=== PATIENT | male | born 1955 | race Caucasian/White ===

== ENCOUNTER 2016-11-22 04:43 | Inpatient (IN) | payer OTHER ==
[~2016-11-22] VITALS: Ht 172.7 cm; Wt 86.2 kg
[~2016-11-22 04:43] MED LIST: DIVA500T2 PO; ESCI10TA PO; ZOLP10TA2 PO
--- NOTE | 2016-11-22 04:50 | NUR ---
PT SHAWANDA, PT WAS FOUND AT HIS HOUSE ACTING VERY ERRATIC PER EMS, PT STATES HE SMOKED SOME WEED AND THINKS IT IS LACED WITH SOMETHING, PT ON MONITOR, MD AT BEDSIDE, PT DENIES SI OR HI, WILL CONTINUE TO MONITOR.
[2016-11-22] MEDS ORDERED: IV NS 0.9% 1,000 ML BAG IV ONE ×2 (05:00→06:30)
[2016-11-22] MEDS ORDERED: OLANZAPINE 10 MG VIAL IM ONE ×2 (05:00)
[2016-11-22] MEDS ORDERED: LORAZEPAM INJ 2 MG/ML VIAL IM ONE (05:00)
[2016-11-22] MEDS ORDERED: WATER FOR INJECTION,STERILE 10 ML ONE (05:00)
[2016-11-22] MEDS ORDERED: LORAZEPAM INJ 2 MG/ML VIAL ONE ×4 (05:01→16:56)
[2016-11-22 05:22] LABS: BASOPHILS # (AUTO) 0.1 /CMM (0.0-0.2); BASOPHILS % (AUTO) 0.4 % (0.0-2.0); EOSINOPHILS % (AUTO) 0.1 % (0.0-6.0); HEMATOCRIT 41 % (39-51); HEMOGLOBIN 14.3 g/dL (13.5-17.5); LYMPHOCYTES # (AUTO) 1.2 /CMM (0.8-4.8); MEAN CORPUSCULAR HEMOGLOBIN 33 PG (26.0-33.0); MEAN CORPUSCULAR HGB CONC 35 g/dl (31.0-36.0); MEAN CORPUSCULAR VOLUME 93 fL (80-96); MONOCYTES # (AUTO) 1.2 /CMM (0.1-1.30); MONOCYTES % (AUTO) 5.2 % (2.0-12.0); NEUTROPHILS # (AUTO) 21.4 /CMM (1.8-8.9); NEUTROPHILS % (AUTO) 89.3 % (43.0-81.0); PLATELET COUNT (AUTO) 189 /CMM (150-450); RDW COEFFICIENT OF VARIATION 12.9 (11.5-15.0)
[2016-11-22] MEDS ORDERED: Magnesium 1 GM/2 ML VIAL IV ONE (05:30)
[2016-11-22] MEDS ORDERED: diphenhydrAMINE HCL 50 MG/ML VIAL ONE (05:36)
[2016-11-22] MEDS ORDERED: Magnesium 1GM/D5W 100ML PREMIX 200 ML IV ONE (05:36)
[2016-11-22 05:38] LABS: VALPROIC ACID 4 ug/mL (50-100)
[2016-11-22 05:43] LABS: ALANINE AMINOTRANSFERASE 56 U/L (12-78); ALBUMIN 4.9 g/dL (3.4-5.0); ALCOHOL, BLOOD < 3 mg/dL (0-0); ALKALINE PHOSPHATASE 76 U/L (46-116); ASPARTATE AMINOTRANSFERASE 80 U/L (15-37); BILIRUBIN,DIRECT 0.3 mg/dL (0.0-0.2); BILIRUBIN,TOTAL 1.2 mg/dL (0.2-1.0); CALCIUM, SERUM 8.7 mg/dL (8.5-10.1); CARBON DIOXIDE 11 mmol/L (21-32); CHLORIDE 95 mmol/L (98-107); CREATININE 3.9 mg/dL (0.6-1.3); GLUCOSE 79 mg/dL (74-106); POTASSIUM 4.6 mmol/L (3.5-5.1); SALICYLATE 5.5 mg/dL (2.8-20.0); SODIUM SERUM 138 mmol/L (136-145)
[2016-11-22 05:47] LABS: ACETAMINOPHEN 0 ug/ml (10-30); UREA NITROGEN, BLOOD 108 mg/dL (7-18)
[2016-11-22 05:59] LABS: INR 1.06 (0.87-1.13); PROTHROMBIN TIME 11.4 SECS (9.5-12.7)
[2016-11-22] MEDS ORDERED: LORAZEPAM INJ 2 MG/ML VIAL IV ONE ×2 (06:00→06:30)
--- NOTE | 2016-11-22 06:00 | NUR ---
PT STILL ACTING ERRATIC, MD DILL MADE AWARE AND 2MG OF ATIVAN IV WAS ORDERED AND GIVEN WILL CONTINUE TO MONITOR.
[2016-11-22 06:28] LABS: CREATINE KINASE MB 31.6 ng/mL (0-3.6)
[2016-11-22] MEDS ORDERED: diphenhydrAMINE HCL 50 MG/ML VIAL IV ONE (06:30)
[2016-11-22] MEDS ORDERED: METOPROLOL TARTRATE 25 MG TABLET PO ONE (06:30)
--- NOTE | 2016-11-22 06:38 | NUR ---
DARLINE DISCONTINUED BY MD DILL REQUEST, PT IN BED SLEEPING ON MONITOR, VSS WILL CONTINUE TO MONITOR
[2016-11-22 06:46] LABS: APPEARANCE,URINE CLEAR (CLEAR); BILIRUBIN,URINE 2+ (NEGATIVE); BLOOD, URINE 2+ Ery/uL (NEGATIVE); COLOR,URINE YELLOW (YELLOW); KETONES,URINE TRACE (NEGATIVE); LEUKOCYTE ESTERASE ,URINE NEGATIVE (NEGATIVE); NITRITE, URINE NEGATIVE (NEGATIVE); PROTEIN,URINE NEGATIVE (NEGATIVE); UGLUCOSE NEGATIVE (NEGATIVE); UROBILINOGEN,URINE 0.2 EU/dL (0.2)
[2016-11-22 07:12] LABS: BACTERIA,URINE None seen /HPF (None Seen); MUCUS,URINE Rare /LPF (None Seen); SQUAMOUS EPITHELIAL CELL,UR Few /HPF (None Seen)
--- NOTE | 2016-11-22 07:36 | NUR ---
PAGED DR. KANG FOR ADMISSION
[2016-11-22 08:03] LABS: BAND % (MANUAL) 15 % (0.0-5.0); LYMPHOCYTES % (MANUAL) 8 % (16-48); MONOCYTES % (MANUAL) 3 % (0-11.0); NEUTROPHILS % (MANUAL) 74 (42-76)
--- NOTE | 2016-11-22 08:30 | NUR ---
REPORT GIVEN TO ROX CASTLE FOR ROOM [phone]
[2016-11-22 09:00] VITALS: BP 103/60
[2016-11-22] MEDS ORDERED: LORAZEPAM INJ 2 MG/ML VIAL IV PRN ×2 (09:00→19:00)
[2016-11-22] MEDS: ESCITALOPRAM OXALATE (10 MG) 10 MG TABLET PO SCH (09:00)
[2016-11-22] MEDS ORDERED: ONDANSETRON HCL/PF 4 MG/2 ML VIAL IVP PRN (09:00)
[2016-11-22] MEDS ORDERED: MAGNESIUM HYDROXIDE 30 ML UDC PO PRN (09:00)
[2016-11-22] MEDS ORDERED: MAG HYDROX/AL HYDROX/SIMETH 30 ML UDC PO PRN (09:00)
--- NOTE | 2016-11-22 09:20 | NUR ---
MS RN OPENING RECEIVED PATIENT RESPONDING TO PAINFUL STIMULI ONLY. INCOMPREHENSIBLE SOUNDS. VS STABLE. O2 STABLE. IV INTACT PATENT. BED ALARM ON. PATIENT APPEARS STABLE NO S/S DIFFICULTY BREATHING, SOB, OR PAIN. HOWEVER PATIENT IS VERY LETHARGIC. MD AWARE. NEEDS IN REACH, BED LOWERED AND LOCKED, RAILS UPX3 FOR SAFETY AND WILL ROUND Q2H OR LESS PER NEEDS. BED ALARM ON.
[2016-11-22] MEDS: IV NS 0.9% 1,000 ML IV PRN ×2 (11:26→17:00)
--- NOTE | 2016-11-22 11:58 | NUR ---
MS RN NOTES SHOWED DR KANG PATIENT SKIN. PER MD ORDER WOUND EVAL AND ID CONSULT; DR ANDREWS
--- NOTE | 2016-11-22 12:59 | NUR ---
MS RN NOTES NOTIFIED RITA FRANKLIN OF ARF DIAGNOSIS
--- NOTE | 2016-11-22 12:59 | NUR ---
WOUND CARE CONSULT RECEIVED WOUND CONSULT FOR PATIENT FOR POSSIBLE SCABIES. SENIOR ERP CONSULTANT WILL DEFER TO MD AT THIS TIME. DISCUSSED WITH NURSING STAFF.
--- NOTE | 2016-11-22 13:00 | NUR ---
MS RN NOTES SPOKE WITH [facility] INFECTION CONTROL TO NOTIFY OF R/O POSSIBLE SCABIES. HE WILL BE AROUND IN ANOTHER HOUR OR SO TO COMPLETE A SKIN SCRAPING
--- NOTE | 2016-11-22 13:00 | NUR ---
MS RN NOTES HOLDING LEXAPRO; PATIENT IS LETHARGIC AT THIS TIME. WILL NOT TAKE PILL AFTER MULTIPLE ATTEMPTS
[2016-11-22 16:00] VITALS: BP 98/73
--- NOTE | 2016-11-22 16:24 | NUR ---
ms rn notes PATIENT IS A LITTLE MORE AWAKE AT THIS TIME. ABLE TO ANSWER NAME/ AND THAT HE IS IN THE HOSPITAL. PATIENT IS SHAKEY, DRY MOUTH AND UNABLE TO OPEN LEFT EYE AND RIGHT UPPER EXTREMITY IS CONTRACTED; PATIENT UNABLE TO LIFT UP BILATERAL UPPER ARMS. NOTIFIED MD KANG. PENDING ORDERS.
--- NOTE | 2016-11-22 17:00 | NUR ---
MS RN NOTES PATIENT PLACED ON OBSERVATION TELE DE TO INCREASED AGGITATION AND FLAILING OF ARMS.
--- NOTE | 2016-11-22 17:39 | NUR ---
MS RN NOTES PATIENT RESTING COMFORTABLY AT THIS TIME.
[2016-11-22] MEDS: DIVALPROEX SODIUM 250 MG TABLET.DR PO SCH (18:00)
--- NOTE | 2016-11-22 18:00 | NUR ---
CEMETERY WORKERS SUPERVISOR PATIENT IS UNABLE TO SWALLOW. DEPAKOTE PILL IS HELD. PATIENT REFEREED TO FOR SWALLOW EVAL.
[2016-11-22] MEDS ORDERED: MEROPENEM 250 MG in IV NS 0.9% 50 ML IV SCH (19:00)
--- NOTE | 2016-11-22 19:30 | NUR ---
MS/TELE OBSERVATION RN OPENING NOTES: RECEIVED PT IN BED AND IS RESTING AND ASLEEP AT THIS TIME. PT'S L EYE DOES NOT OPEN. BED ALARM ACTIVIATED. IVF BEING INFUSED ON R AC #18G WITH NS AT 200ML/HR. CALL LIGHT WITHIN PT'S REACH. BED KEPT IN LOCKED, LOWEST POSITION, AND SIDE RAILS X 2 UP. WILL CONTINUE TO MONITOR PT.
--- NOTE | 2016-11-22 19:36 | NUR ---
TELE OBS CLOSING PATIENT RESTING AT THIS TIME. MD UPDATED ON PATIENT CONDITION. AWARE PATIENT LEFT EYE DOES NOT OPEN AND RIGHT ARM CONTRACTED. PATIENT BED ALARM ON. SKIN CARE COMPLETED WITH BED BATH. ALL NEEDS IN REACH, IVF RUNNING ORDERED. VS STABLE. CARE ENDORSED TO TREVON CASTLE FOR ARLYN
[2016-11-22] MEDS ORDERED: FEE PK DOSING 1 MIN EA MC ONE (19:49)
[2016-11-22 20:00] VITALS: BP 123/71
[2016-11-22] MEDS ORDERED: VANCOMYCIN 1 GM in IV D5W 250 ML IV SCH (20:00)
[2016-11-22 20:15] VITALS: BP 123/71
[2016-11-22] MEDS: CEFTRIAXONE 1 G in IV D5W 50 ML IV SCH (20:52)
--- NOTE | 2016-11-22 20:52 | NUR ---
MS RN NOTES: IV ANTIBIOTICS ADMIN LATE D/T WAITING FOR PHARMACY TO BRING THEM UP.
[2016-11-22] MEDS ORDERED: ACYCLOVIR IV 800 MG in IV D5W 100 ML IV SCH (21:00)
[2016-11-22] MEDS ORDERED: DIVALPROEX SODIUM 500 MG TABLET.DR PO SCH (22:00)
[2016-11-23] VITALS (7 sets, daily range): BP systolic 104–132; BP diastolic 67–83
[2016-11-23] MEDS: IV NS 0.9% 1,000 ML IV PRN ×3 (02:22→15:26)
[2016-11-23 06:51] LABS: HEMATOCRIT 36 % (39-51); HEMOGLOBIN 12.7 g/dL (13.5-17.5); LYMPHOCYTES # (AUTO) 0.7 /CMM (0.8-4.8); LYMPHOCYTES % (AUTO) 6.7 % (20.0-44.0); MEAN CORPUSCULAR HEMOGLOBIN 33 PG (26.0-33.0); MEAN CORPUSCULAR HGB CONC 35 g/dl (31.0-36.0); MEAN CORPUSCULAR VOLUME 93 fL (80-96); MONOCYTES # (AUTO) 0.7 /CMM (0.1-1.30); MONOCYTES % (AUTO) 7.1 % (2.0-12.0); NEUTROPHILS # (AUTO) 8.8 /CMM (1.8-8.9); NEUTROPHILS % (AUTO) 86.2 % (43.0-81.0); PLATELET COUNT (AUTO) 132 /CMM (150-450); RDW COEFFICIENT OF VARIATION 13.4 (11.5-15.0); RED BLOOD CELL COUNT(AUTO) 3.88 MIL/uL (4.5-6.0); WHITE BLOOD COUNT (AUTO) 10.2 K/uL (4.3-11.0)
[2016-11-23 07:21] LABS: CALCIUM, SERUM 7.9 mg/dL (8.5-10.1); CREATININE 1.4 mg/dL (0.6-1.3); MAGNESIUM 2.6 mg/dL (1.8-2.4); POTASSIUM 4.1 mmol/L (3.5-5.1)
--- NOTE | 2016-11-23 07:22 | NUR ---
MS/TELE OBSERVATION RN CLOSING NOTES: ALL NEEDS WERE ATTENDED AND ANTICIPATED FOR. PT KEPT CLEAN, DRY, AND COMFORTABLE. PT HAS BEEN ASLEEP AND LETHARGIC THROUGHOUT MY SHIFT. PT'S L EYE STILL DID NOT OPEN. BE ALARM ACTIVATED. IVF BEING INFUSED ON R AC #18G WITH NS AT 200ML/HR. CALL LIGHT WITHIN PT'S REACH. BED KEPT IN LOCKED, LOWEST POSITION, AND SIDE RAILS X 2 UP. ENDORSED TO AM NURSE FOR ARLYN.
--- NOTE | 2016-11-23 07:30 | NUR ---
MS RN OPENING RECEIVED PATIENT A/OX1 ABLE TO COMMUNICATE SELF AND AND AWARE HE IS IN THE HOSPITAL. PATIENT IS MORE ALERT TODAY NODDING YES TO WANTING TO EAT BREAKFAST. DIFFICULTY FOR PATIENT TO OPEN EYES AND LEFT EYE IS STILL NOT OPENING. LIMBS ARE MORE RELAXED TODAY AND NOT RIGID. ALL NEEDS IN REACH. NO S/S PAIN, DIFFICULTY BREATHING OR PAIN AT THIS TIME. RESPIRATIONS EQUAL AND UNLABORED. IVF RUNNING ORDERED,IV INTACT PATENT AND NO S/S INFILTRATION. BED ALARM ON AND CALL LIGHT IN REACH. ASSISTED PATIENT TO TURN AND OFFLOAD EXTREMITIES. WILL ROUND Q2H OR LESS PER NEEDS
[2016-11-23] MEDS: PANTOPRAZOLE 40 MG TABLET.DR PO SCH (09:22)
[2016-11-23] MEDS: DIVALPROEX SODIUM 250 MG TABLET.DR PO SCH ×2 (09:22→13:58)
[2016-11-23] MEDS: Z GUARD REMEDY 2 OZ OINT TP PRN ×2 (09:22→15:32)
[2016-11-23] MEDS: ESCITALOPRAM OXALATE (10 MG) 10 MG TABLET PO SCH (09:22)
--- NOTE | 2016-11-23 09:25 | NUR ---
MS RN NOTES PATIENT IS ABLE TO ASSIST HIMSELF UP TO GET IN POSITION TO EAT BREAKFAST. PATIENT IS TOLERATING DIET OKAY; SLIGHTLY DIFFICULT FOR PATIENT TO CUT/CHEW BIT BITES; WILL UPDATE FOOD TO MECHANICAL SOFT DIET UNTIL PATIENT LESS LETHARGIC. TOLERATED PO MEDICATIONS NO COMPLICATIONS.
--- NOTE | 2016-11-23 11:43 | NUR ---
Social service consult requested by Dr. Bergeron for drug use and living situation. Pt. is a 61 year old male who was admitted to [facility] for Acute Renal Failure. SW attempted to assess pt. however pt. is not alert at this time. SW to follow up with pt. when he is more alert and oriented.
--- NOTE | 2016-11-23 12:45 | NUR ---
ms rn notes dr wayne at bedside. per okay to wash eye out with NS and she will add orders for eye care
[2016-11-23] MEDS ORDERED: NEOMY SULF/BACITRA/POLYMYXIN B 3.5 GM TUBE EACHEYE SCH ×2 (13:00→14:00)
[2016-11-23] MEDS ORDERED: VANCOMYCIN 1 GM in IV D5W 250 ML IV SCH (13:00)
[2016-11-23] MEDS ORDERED: SOD BORATE/BORIC AC/H2O/NACL 118 ML BOTTLE EACHEYE ONE (13:00)
[2016-11-23] MEDS ORDERED: ACYCLOVIR IV 0.8 GM in IV D5W 250 ML IV SCH (14:00)
--- NOTE | 2016-11-23 14:08 | NUR ---
MS RN NOTES CALLED PHARMACY TO HAVE EYE OINTMENT CHANGED WE ARE NOT ABLE TO PUT TRIPLE ANTIBIOTIC OINTMENT IN THE EYE. THEY WILL F/U WELL IF THEY HAVE THE EYE WASH AVAILABLE WELL.
[2016-11-23] MEDS: LACTOBACILLUS RHAMNOSUS GG 1 EACH CAP.SPRINK PO SCH (16:11)
--- NOTE | 2016-11-23 17:57 | NUR ---
MS RN NOTES CLARIFIED WITH MD KANG IF RENAL US IS NEEDED. PER NOT AT THIS TIME.
--- NOTE | 2016-11-23 18:47 | NUR ---
MS RN CLOSING PATIENT STABLE. NO COMPLICATIONS TODAY. PATIENT ABLE TO TOLERATE ALL ELMER MEDICATIONS AND IVF RUNNING ORDERED. PATIENT NEEDS IN REACH, BED LOWERED AND LOCKED, RAILS UPX3 FOR SAFETY, AND BED ALARM ON. CARE WILL BE ENDORSED TO RN FOR ARLYN
--- NOTE | 2016-11-23 19:15 | NUR ---
RN OPEN NOTES RECEIVED PATIENT RESTING IN BED. A/O X2, LETHARGIC. NO SIGNS OF DISTRESS OR DISCOMFORT. BREATHING EVEN AND UNLABORED. IV ACCESS IN RAC WITH NS INFUSING, PATENT AND INTACT, NO SIGNS OF REDNESS OR INFILTRATION. BED IN LOW LOCKED POSITION WITH SIDE RAILS X3. CALL LIGHT WITHIN REACH. WILL CONTINUE TO MONITOR.
[2016-11-23] MEDS: CEFTRIAXONE 1 G in IV D5W 50 ML IV SCH (20:44)
[2016-11-23] MEDS: NEOMY SULF/BACITRA/POLYMYXIN B 3.5 GM TUBE EACHEYE SCH ×2 (20:44→23:27)
[2016-11-24] VITALS: BP 128/80
[2016-11-24 00:05] VITALS: BP 128/80
[2016-11-24] MEDS: NEOMY SULF/BACITRA/POLYMYXIN B 3.5 GM TUBE EACHEYE SCH ×5 (04:08→20:03)
[2016-11-24 07:13] LABS: BASOPHILS % (AUTO) 0.1 % (0.0-2.0); EOSINOPHILS # (AUTO) 0.1 /CMM (0.0-0.7); EOSINOPHILS % (AUTO) 1.5 % (0.0-6.0); HEMATOCRIT 34 % (39-51); HEMOGLOBIN 11.8 g/dL (13.5-17.5); LYMPHOCYTES % (AUTO) 21.4 % (20.0-44.0); MEAN CORPUSCULAR HEMOGLOBIN 33 PG (26.0-33.0); MEAN CORPUSCULAR HGB CONC 35 g/dl (31.0-36.0); MEAN CORPUSCULAR VOLUME 94 fL (80-96); MONOCYTES # (AUTO) 0.4 /CMM (0.1-1.30); MONOCYTES % (AUTO) 8.1 % (2.0-12.0); NEUTROPHILS # (AUTO) 3.4 /CMM (1.8-8.9); NEUTROPHILS % (AUTO) 68.9 % (43.0-81.0); PLATELET COUNT (AUTO) 87 /CMM (150-450); RDW COEFFICIENT OF VARIATION 13.4 (11.5-15.0); RED BLOOD CELL COUNT(AUTO) 3.59 MIL/uL (4.5-6.0); WHITE BLOOD COUNT (AUTO) 4.9 K/uL (4.3-11.0)
[2016-11-24] MEDS: PANTOPRAZOLE 40 MG TABLET.DR PO SCH (07:30)
--- NOTE | 2016-11-24 07:30 | NUR ---
STOCK CRANE OPERATOR OPENING NOTE PLEASE SEE THE OPENING NOTE IN THE PAPER CHART.
[2016-11-24 07:44] LABS: CALCIUM, SERUM 8.1 mg/dL (8.5-10.1); CREATININE 0.9 mg/dL (0.6-1.3); MAGNESIUM 2.2 mg/dL (1.8-2.4); PHOSPHORUS 1.3 mg/dL (2.5-4.9); POTASSIUM 3.6 mmol/L (3.5-5.1)
[2016-11-24 08:00] VITALS: BP 135/86
[2016-11-24] MEDS: DIVALPROEX SODIUM 250 MG TABLET.DR PO SCH ×2 (09:00→13:00)
[2016-11-24] MEDS: ESCITALOPRAM OXALATE (10 MG) 10 MG TABLET PO SCH (09:00)
[2016-11-24] MEDS: LACTOBACILLUS RHAMNOSUS GG 1 EACH CAP.SPRINK PO SCH ×2 (09:00→17:13)
--- NOTE | 2016-11-24 09:58 | NUR ---
SOFTWARE ENGINEERING SPECIALIST NOTES "NON ADMIN" MEDICATIONS ADMINISTERED ORDERED AND DOCUMENTED IN MEDICATION CHART.
[2016-11-24 10:10] LABS: CREATINE KINASE MB 2.6 ng/mL (0-3.6)
[2016-11-24 10:20] LABS: LYMPHOCYTES % (MANUAL) 19 % (16-48); MONOCYTES % (MANUAL) 13 % (0-11.0); NEUTROPHILS % (MANUAL) 68 (42-76)
[2016-11-24 11:30] VITALS: BP 138/88
[2016-11-24] MEDS: Z GUARD REMEDY 2 OZ OINT TP PRN (11:33)
--- NOTE | 2016-11-24 12:11 | NUR ---
KELSEY met with pt. bedside. Pt. is alert and oriented x 4. Pt. is polite and cooperative with SW during the assessment. Pt. states he lives alone at [id number] [place] [id number]. Pt. does not have an emergency contact at this time. Pt. has a history of drug use and stated he last smoked weed that was laced with some other drug the day before he was admitted to [facility]. Pt. stated he was smoking and drinking beers prior to being hospitalized. Pt. is a non-smoker. Pt. has a psychiatric diagnosis of Bipolar and Depression and takes Depakote and Celexa. Pt. declined drug treatment resources and informed SW he goes to the [facility] in [facility] occasionally. KELSEY encouraged pt. to go consistently. Pt. also sees a psychiatrist Dr. Romero once a month. Pt. is ambulatory and independent with his ADL's. Pt. denies suicidal/homicidal ideations and visual/auditory hallucinations at this time. Pt. has had no prior psychiatric hospitalizations. KELSEY discussed advance directives with pt and encourage pt. to have one completed once he has an agent. Pt. will require taxi upon discharge to his home address. KELSEY informed Med Surg MARIA LUZ Maciel regarding transportation. No other social service needs are required at this time. KELSEY is available upon if needed.
[2016-11-24] MEDS ORDERED: NEUTRA PHOS 1 POWD.PACKET NG ONE (14:00)
[2016-11-24 16:40] VITALS: BP 130/77
--- NOTE | 2016-11-24 17:01 | NUR ---
MS RN NOTE PATIENT WAS ASLEEP ANS ASKED TO COME BACK TO ADMINISTER THE OPHTHALMIC MEDICATION. MEDICATION ADMINISTERED. PATIENT TOLERATED WELL.
[2016-11-24] MEDS: LIDOCAINE VISCOUS 2% UD 15 ML UDC MM SCH (17:13)
[2016-11-24] MEDS: IV NS 0.9% 1,000 ML IV PRN (17:14)
[2016-11-24] MEDS: SUCRALFATE 1 G/10 ML UDC PO SCH (17:30)
--- NOTE | 2016-11-24 19:15 | NUR ---
MS RN NOTES RECEIVED PT IN BED, RESTING COMFORTABLY AT THIS TIME. A/O X 3. VERBALLY RESPONSIVE. NO DISTRESS, NO SOB AT THIS TIME. RESPIRATION IS EVEN AND UNLABORED. IV SITE ON RAC INTACT AND PATENT. NO S/S OF INFILTRATION NOTED. IVF INFUSING WELL. DENIES ANY PAIN OR DISCOMFORT AT THIS TIME. ALL NEEDS ATTENDED AND MET. KEPT COMFORTABLE. CALL LIGHT WITHIN REACH. SAFETY PRECAUTIONS OBSERVED. WILL CONT TO MONITOR.
--- NOTE | 2016-11-24 19:31 | NUR ---
MS RN CLOSING NOTE PATIENT IS ASLEEP IN BED. BED IS LOCKED IN LOW POSITION, PINEDA'S, SIDE RAILS UP X2. ALL NEEDS WITHIN REACH. CALL LIGHT WITHIN REACH. PATIENT IS STABLE. WILL GIVE REPORT AND ENDORSE TO COMMUNICATION INSTRUCTOR NURSE FOR CONTINUATION OF CARE.
[2016-11-24 20:00] VITALS: BP 121/70
[2016-11-25] MEDS: SUCRALFATE 1 G/10 ML UDC PO SCH ×4 (01:10→18:28)
[2016-11-25] MEDS: NEOMY SULF/BACITRA/POLYMYXIN B 3.5 GM TUBE EACHEYE SCH ×6 (01:11→21:00)
[2016-11-25] MEDS: LIDOCAINE VISCOUS 2% UD 15 ML UDC MM SCH ×4 (01:11→18:28)
[2016-11-25] MEDS: IV NS 0.9% 1,000 ML IV PRN ×2 (01:47→15:40)
--- NOTE | 2016-11-25 06:38 | NUR ---
MS RN NOTES PT IN BED, AWAKE, A/O X 3. VERBALLY RESPONSIVE. NO DISTRESS, NO SOB AT THIS TIME. RESPIRATION IS EVEN AND UNLABORED. IV SITE ON RAC INTACT AND PATENT. NO S/S OF INFILTRATION NOTED. IVF INFUSING WELL. DENIES ANY PAIN OR DISCOMFORT AT THIS TIME. GOOD SKIN CARE PROVIDED. PT IS AMBULATORY WITH ASSIST AND WALKER, ABLE TO URINATE FREELY WITH YELLOW URINE, NO DYSURIA NOTED. ALL NEEDS ATTENDED AND MET. KEPT COMFORTABLE. CALL LIGHT WITHIN REACH. SAFETY PRECAUTIONS OBSERVED. WILL ENDORSE TO NEXT SHIFT FOR ARLYN.
[2016-11-25 07:14] LABS: BASOPHILS % (AUTO) 0.4 % (0.0-2.0); EOSINOPHILS # (AUTO) 0.1 /CMM (0.0-0.7); EOSINOPHILS % (AUTO) 1.9 % (0.0-6.0); HEMATOCRIT 32 % (39-51); HEMOGLOBIN 11.4 g/dL (13.5-17.5); LYMPHOCYTES # (AUTO) 1.4 /CMM (0.8-4.8); MEAN CORPUSCULAR HEMOGLOBIN 33 PG (26.0-33.0); MEAN CORPUSCULAR HGB CONC 35 g/dl (31.0-36.0); MEAN CORPUSCULAR VOLUME 93 fL (80-96); MONOCYTES # (AUTO) 0.5 /CMM (0.1-1.30); MONOCYTES % (AUTO) 11.3 % (2.0-12.0); NEUTROPHILS # (AUTO) 2.3 /CMM (1.8-8.9); NEUTROPHILS % (AUTO) 53.4 % (43.0-81.0); PLATELET COUNT (AUTO) 103 /CMM (150-450); RDW COEFFICIENT OF VARIATION 13.2 (11.5-15.0); RED BLOOD CELL COUNT(AUTO) 3.45 MIL/uL (4.5-6.0); WHITE BLOOD COUNT (AUTO) 4.3 K/uL (4.3-11.0)
--- NOTE | 2016-11-25 07:20 | NUR ---
RN OPENING NOTES RECEIVED PATIENT IN BED, RESTING COMFORTABLY. A/O X 3. VERBALLY RESPONSIVE. NO DISTRESS, NO SOB AT THIS TIME. RESPIRATION IS EVEN AND UNLABORED. IV SITE ON RAC, INTACT AND PATENT. NO S/S OF INFILTRATION NOTED. IVF INFUSING WELL. DENIES ANY PAIN OR DISCOMFORT AT THIS TIME. KEPT COMFORTABLE. CALL LIGHT WITHIN REACH. SAFETY PRECAUTIONS OBSERVED. WILL CONTINUE TO MONITOR ACCORDINGLY.
[2016-11-25 07:43] LABS: CALCIUM, SERUM 7.9 mg/dL (8.5-10.1); CREATININE 0.7 mg/dL (0.6-1.3); MAGNESIUM 1.5 mg/dL (1.8-2.4); PHOSPHORUS 1.2 mg/dL (2.5-4.9); POTASSIUM 3.3 mmol/L (3.5-5.1)
[2016-11-25 08:00] VITALS: BP 141/84
[2016-11-25] MEDS: PANTOPRAZOLE 40 MG TABLET.DR PO SCH (08:17)
[2016-11-25] MEDS: LACTOBACILLUS RHAMNOSUS GG 1 EACH CAP.SPRINK PO SCH ×2 (08:17→18:28)
[2016-11-25] MEDS: DIVALPROEX SODIUM 250 MG TABLET.DR PO SCH ×2 (08:17→12:38)
[2016-11-25] MEDS: ESCITALOPRAM OXALATE (10 MG) 10 MG TABLET PO SCH (08:17)
[2016-11-25] MEDS ORDERED: POTASSIUM CHLORIDE 20 MEQ TAB.PRT.SR PO SCH (10:00)
[2016-11-25] MEDS: Magnesium 1GM/D5W 100ML PREMIX 100 ML IV SCH ×2 (10:33→11:49)
[2016-11-25] MEDS ORDERED: K PHOS NEUTRAL 250 MG TABLET PO ONE (12:00)
[2016-11-25] MEDS: ACETAMINOPHEN 325 MG TABLET PO PRN (15:48)
[2016-11-25 16:00] VITALS: BP 134/72
[2016-11-25 17:09] LABS: *NEISSERIA GONORRHOEAE NAA Negative (Negative); CHLAMYDIA TRACHOMATIS NAA Negative (Negative)
--- NOTE | 2016-11-25 19:00 | NUR ---
RN CLOSING NOTES PATIENT IN BED RESTING, IN STABLE CONDITION. NO ACUTE DISTRESS, NO SOB NOTED. ALL NEEDS ATTENDED AND PROVIDED. KEPT PATIENT SAFE AND COMFORTABLE. BED IN LOW POSITION, LOCKED, SIDERAILS UPX2, CALL LIGHT WITHIN REACH. ENDORSED TO SALESPERSON HOSIERY RN FOR CONTINUITY OF CARE.
[2016-11-25 20:00] VITALS: BP 140/80
[2016-11-25] MEDS ORDERED: ENOXAPARIN SODIUM 40 MG/0.4 ML DISP.SYRIN SQ SCH (21:00)
[2016-11-26] MEDS: SUCRALFATE 1 G/10 ML UDC PO SCH ×3 (00:29→12:41)
[2016-11-26] MEDS: LIDOCAINE VISCOUS 2% UD 15 ML UDC MM SCH ×3 (00:31→12:40)
[2016-11-26] MEDS: NEOMY SULF/BACITRA/POLYMYXIN B 3.5 GM TUBE EACHEYE SCH ×5 (00:33→16:00)
[2016-11-26] MEDS: ACETAMINOPHEN 325 MG TABLET PO PRN (00:41)
[2016-11-26 06:24] LABS: BASOPHILS % (AUTO) 0.3 % (0.0-2.0); EOSINOPHILS # (AUTO) 0.1 /CMM (0.0-0.7); EOSINOPHILS % (AUTO) 2.6 % (0.0-6.0); HEMATOCRIT 34 % (39-51); HEMOGLOBIN 12.2 g/dL (13.5-17.5); LYMPHOCYTES # (AUTO) 1.7 /CMM (0.8-4.8); LYMPHOCYTES % (AUTO) 37.9 % (20.0-44.0); MEAN CORPUSCULAR HEMOGLOBIN 33 PG (26.0-33.0); MEAN CORPUSCULAR HGB CONC 36 g/dl (31.0-36.0); MEAN CORPUSCULAR VOLUME 93 fL (80-96); MONOCYTES # (AUTO) 0.4 /CMM (0.1-1.30); MONOCYTES % (AUTO) 10.3 % (2.0-12.0); NEUTROPHILS # (AUTO) 2.1 /CMM (1.8-8.9); NEUTROPHILS % (AUTO) 48.9 % (43.0-81.0); PLATELET COUNT (AUTO) 114 /CMM (150-450); RDW COEFFICIENT OF VARIATION 12.8 (11.5-15.0); RED BLOOD CELL COUNT(AUTO) 3.69 MIL/uL (4.5-6.0); WHITE BLOOD COUNT (AUTO) 4.4 K/uL (4.3-11.0)
--- NOTE | 2016-11-26 06:29 | NUR ---
MS RN NOTES PT IN BED, RESTING COMFORTABLY AT THIS TIME. AROUSES EASILY. A/O X 3. VERBALLY RESPONSIVE. NO DISTRESS, NO SOB AT THIS TIME. RESPIRATION IS EVEN AND UNLABORED. IV SITE ON RAC INTACT AND PATENT. NO S/S OF INFILTRATION NOTED. IVF INFUSING WELL. PT IS AMBULATORY. CONTINENT OF BOWEL AND BLADDER. DENIES ANY PAIN OR DISCOMFORT AT THIS TIME. ALL NEEDS ATTENDED AND MET. KEPT COMFORTABLE. GOOD SKIN CARE RENDERED. CALL LIGHT WITHIN REACH. SAFETY PRECAUTIONS OBSERVED. WILL ENDORSE TO NEXT SHIFT FOR ARLYN.
[2016-11-26 06:42] LABS: CREATININE 0.7 mg/dL (0.6-1.3); MAGNESIUM 1.6 mg/dL (1.8-2.4)
--- NOTE | 2016-11-26 07:50 | NUR ---
RN MS NOTES RECEIVED PATIENT IN BED, VERBALLY RESPONSIVE. NO APPARENT DISTRESS NOTED DENIES PAIN, DENIES SOB, RESPIRATIONS EVEN AND UNLABORED. RAC IV INTACT AND PATENT INFUSING NS [id number]. ALL NEEDS MET, CALL LIGHT WITHIN REACH.
[2016-11-26 08:00] VITALS: BP 144/92
[2016-11-26] MEDS: PANTOPRAZOLE 40 MG TABLET.DR PO SCH (08:58)
[2016-11-26] MEDS: LACTOBACILLUS RHAMNOSUS GG 1 EACH CAP.SPRINK PO SCH (08:59)
[2016-11-26] MEDS: ESCITALOPRAM OXALATE (10 MG) 10 MG TABLET PO SCH (08:59)
[2016-11-26] MEDS: DIVALPROEX SODIUM 250 MG TABLET.DR PO SCH ×2 (08:59→12:43)
[2016-11-26] MEDS: POTASSIUM CHLORIDE 20 MEQ TAB.PRT.SR PO SCH ×3 (10:39→12:41)
[2016-11-26] MEDS: Magnesium 1GM/D5W 100ML PREMIX 100 ML IV SCH ×2 (10:39→12:41)
[2016-11-26] MEDS ORDERED: K PHOS NEUTRAL 250 MG TABLET PO ONE (12:00)
[2016-11-26] MEDS ORDERED: AMOX-427 PO (14:07)
[2016-11-26] MEDS ORDERED: PANT40TA2 PO (14:07)
[2016-11-26] MEDS ORDERED: SUCR1ORA6 PO (14:07)
[2016-11-26 16:00] VITALS: BP 144/89
--- NOTE | 2016-11-26 16:17 | NUR ---
KELSEY met with pt's sister who was upset that pt. is refusing to go into a drug treatment program. KELSEY informed pt's sister Renee Rosario that pt has to be motivated to want treatment. 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 KELSEY informed Renee she will speak with the pt. regarding her concerns and not wanting any part of it for now. KELSEY met with pt. bedside. KELSEY informed pt, she spoke to his sister and that his sister is upset that he refused to go to treatment at this time. KELSEY informed pt. that she left the hospital. KELSEY encouraged pt. to seek treatment and gave him list of referrals to treatment programs which included [facility] , [facility] , [facility] to name a few on the list. KELSEY informed MARIA LUZ Torres that pt. will need a transportation to get home.
--- NOTE | 2016-11-26 18:00 | NUR ---
RN MS CLOSING NOTES PATIENT LEFT IN STABLE CONDITION, NO APPARENT DISTRESS NOTED,DENIES PAIN, DENIES SOB. PATIENT A/OX3, VERBALLY RESPONSIVE. PATIENT RECEIVED BUS TOKENS TO GO HOME. PATIENT ABLE TO AMBULATE WITHOUT ASSISTANCE. ALL DUE MEDS GIVEN ALL NEEDS MET. PATIENT WAS GIVEN RESOURCES FOR DRUG TREATMENT, BUT PATIENT REFUSED. DISCHARGE INSTRUCTIONS REVIEWED WITH PATIENT, HE SATED UNDERSTANDING. PATIENT'S PRESCRIPTION CALLED IN TO [facility]. SPOKE WITH PHARMACIST SHARLA. PATIENT WAS INSTRUCTED TO TIE IN MACHINE OPERATOR HIS PRESCRIPTION, HE SATED UNDERSTANDING. PATIENT REFUSED TO HAVE PICTURES TAKEN, HE STATED HE HAD TO GO.IV LINE DISCONTINUED, NO S/S OF INFECTION NOTED.
== END 2016-11-26 18:05 | disposition home or self-care (01) | DRG 351 ==
LOC: ER 04:44 → MED 08:59 → TELE 20:54 → MED 11-24 11:08
PROVIDERS: ADMIT Internal Medicine; ATTEND Internal Medicine
DX: M62.82 Rhabdomyolysis (principal); N17.0 Acute kidney failure with tubular necrosis; G92 Toxic encephalopathy; E87.0 Hyperosmolality and hypernatremia; J02.9 Acute pharyngitis, unspecified; F15.129 Other stimulant abuse with intoxication, unspecified; G40.909 Epilepsy, unspecified, not intractable, without status epilepticus; D72.829 Elevated white blood cell count, unspecified; E86.0 Dehydration; F31.9 Bipolar disorder, unspecified; F17.210 Nicotine dependence, cigarettes, uncomplicated; E66.9 Obesity, unspecified; M19.90 Unspecified osteoarthritis, unspecified site; R21 Rash and other nonspecific skin eruption; J38.1 Polyp of vocal cord and larynx; H10.9 Unspecified conjunctivitis
CPT/HCPCS: 36415; 70450-TC; 80048-TC; 80074; 80076-TC; 80164-TC; 80305; 81000-TC; 82550-TC; 82553-TC; 82962-TC; 83605-TC; 83735-TC; 84100-TC; 84484-TC; 85025-TC; 85730-TC; 86592; 87040-TC; 87070-TC; 87081-TC; 87491; 87591; 97001-TC; A4216; A4606; G0480; J0133; J0696; J1200; J1650; J2060; J2185; J3370; J3475; J3490; J7030; J7060; Z7610